=== PATIENT | female | born 1965 | race Caucasian/White ===

== ENCOUNTER → 2017-05-27 | Outpatient (CLI) | payer MEDICARE ==
[~2017-05-27] VITALS: Ht 160 cm; Wt 77.3 kg
[~2017-05-27] MED LIST: ALEVE220 M1 PO; CEPHALEXIN500 M1 PO; NORCO 325 MG-51 TA1 PO
[2017-05-27 09:39] VITALS: BP 121/56
[2017-05-27 09:57] LABS: HEMATOCRIT 48.9 % (37.0-47.0); HEMOGLOBIN 15.7 g/dL (12.5-16.0); MEAN CELL VOLUME 86 fl (78-100); MEAN CORPUSCULAR HEMOGLOBIN 28 pg (27-31); MEAN CORPUSCULAR HGB CONC 32 g/dL (33-37); MEAN PLATELET VOLUME 9.1 fl (7.4-10.4); RED BLOOD COUNT 5.68 M/mm3 (4.10-5.30); RED CELL DISTRIBUTION WIDTH 15.8 % (11.5-14.5); WHITE BLOOD COUNT 10.6 K/mm3 (4.8-10.8)
[2017-05-27 10:03] LABS: PLATELET COUNT 876 K/mm3 (130-400)
[2017-05-27 10:08] LABS: ALBUMIN 4.2 g/dL (3.5-5.0); CALCIUM 9.8 mg/dL (8.4-10.2); POTASSIUM 4.5 mmol/L (3.6-5.0); TOTAL PROTEIN 7.4 g/dL (6.3-8.2)
[2017-05-27 10:14] LABS: PROTHROMBIN TIME 11.7 SECONDS (9.0-12.0)
[2017-05-27 10:15] LABS: BASO # 0.2 (0.02-0.10); EOS # 0.3 (0.04-0.40); EOS % 2.4 % (1.0-5.0); LYMPH# 1.3 (1.50-4.00); MONO # 1.2 (0.20-0.80); NEU # 7.4 (1.40-6.50)
[2017-05-27 10:19] LABS: URINE APPEARANCE HAZY; URINE BILIRUBIN NEGATIVE (NEGATIVE); URINE BLOOD NEGATIVE (NEGATIVE); URINE COLOR YELLOW; URINE GLUCOSE NEGATIVE (NEGATIVE); URINE KETONE NEGATIVE (NEGATIVE); URINE LEUKOCYTE ESTERASE 2+ (NEGATIVE); URINE MUCUS PRESENT (NOT PRESENT); URINE NITRATE NEGATIVE (NEGATIVE); URINE PROTEIN(semi-quant) TRACE mg/dL (NEGATIVE); URINE UROBILINOGEN NORMAL (NORMAL); URINE WBC 16-30 /hpf (0-3)
== END ==
LOC: AMSURD 08:06
PROVIDERS: Orthopaedic Surgery Sports Medicine
DX: Z01.818 Encounter for other preprocedural examination (principal); Z01.812 Encounter for preprocedural laboratory examination; M17.11 Unilateral primary osteoarthritis, right knee; E66.3 Overweight; D64.9 Anemia, unspecified

== ENCOUNTER → 2017-05-28 | Outpatient (CLI) | payer MEDICARE ==
[2017-05-27 09:39] VITALS: BP 121/56
== END ==
LOC: MAMMO 09:17
DX: Z12.31 Encounter for screening mammogram for malignant neoplasm of breast (principal)
CPT/HCPCS: G0202

== ENCOUNTER 2017-08-05 09:30 | Outpatient (RCR) | payer MEDICARE ==
[2017-05-27 09:39] VITALS: BP 121/56
== END 2017-09-24 | disposition home or self-care (01) ==
LOC: PT
DX: Z47.1 Aftercare following joint replacement surgery (principal); Z96.651 Presence of right artificial knee joint
CPT/HCPCS: G8978-GP; G8979-GP

== ENCOUNTER 2017-12-21 13:36 | Emergency (ER) | payer MEDICARE ==
[~2017-12-21] VITALS: Wt 77.1 kg
[2017-12-21] MEDS ORDERED: KEFLEX250 M1 PO (14:14)
[2017-12-21] MEDS ORDERED: PREDNISONE20 M1 PO (14:14)
[2017-12-21 14:23] VITALS: BP 125/50
== END 2017-12-21 14:29 | disposition home or self-care (01) ==
LOC: ED 13:36
DX: L03.113 Cellulitis of right upper limb (principal)
CPT/HCPCS: J7512

== ENCOUNTER 2018-06-09 14:13 | Emergency (ER) | payer MEDICARE ==
[~2018-06-09] VITALS: Ht 160 cm; Wt 79.5 kg
[~2018-06-09 14:13] MED LIST changes: +KEFLEX250 M1 PO; +PREDNISONE20 M1 PO
[2018-06-09 15:29] LABS: HEMATOCRIT 45.9 % (37.0-47.0); HEMOGLOBIN 15.1 g/dL (12.5-16.0); MEAN CELL VOLUME 84 fl (78-100); MEAN CORPUSCULAR HEMOGLOBIN 28 pg (27-31); MEAN CORPUSCULAR HGB CONC 33 g/dL (33-37); MEAN PLATELET VOLUME 9.4 fl (7.4-10.4); RED BLOOD COUNT 5.47 M/mm3 (4.10-5.30); RED CELL DISTRIBUTION WIDTH 16.9 % (11.5-14.5); WHITE BLOOD COUNT 12.1 K/mm3 (4.8-10.8)
[2018-06-09 15:34] LABS: ALBUMIN 4.6 g/dL (3.5-5.0); CALCIUM 9.5 mg/dL (8.4-10.2); POTASSIUM 4.3 mmol/L (3.6-5.0); TOTAL BILIRUBIN 0.8 mg/dL (0.2-1.3); TOTAL PROTEIN 7.6 g/dL (6.3-8.2)
[2018-06-09 15:42] LABS: PARTIAL THROMBOPLASTIN TIME 25.9 SECONDS (21.0-32.0); PROTHROMBIN TIME 11.9 SECONDS (9.0-12.0)
[2018-06-09 15:49] LABS: PLATELET COUNT 788 K/mm3 (130-400)
[2018-06-09 15:50] LABS: D-DIMER 0.24 mg/L FEU (0.15-0.50)
[2018-06-09 16:03] LABS: URINE APPEARANCE HAZY; URINE BILIRUBIN NEGATIVE (NEGATIVE); URINE BLOOD NEGATIVE (NEGATIVE); URINE COLOR YELLOW; URINE GLUCOSE NEGATIVE (NEGATIVE); URINE KETONE NEGATIVE (NEGATIVE); URINE LEUKOCYTE ESTERASE 2+ (NEGATIVE); URINE NITRATE NEGATIVE (NEGATIVE); URINE PROTEIN(semi-quant) TRACE mg/dL (NEGATIVE); URINE UROBILINOGEN NORMAL (NORMAL)
[2018-06-09 16:04] LABS: LYMPHOCYTE 11 % (20-51); MONOCYTE 9 % (3-10); NEUTROPHILS 77 % (42-75); URINE MUCUS PRESENT (NOT PRESENT)
[2018-06-09] MEDS ORDERED: BACTRIM DS TAB1 EACH PO (16:57)
[2018-06-09 17:10] VITALS: BP 120/53
== END 2018-06-09 15:00 | disposition home or self-care (01) ==
LOC: ED 14:13
PROVIDERS: Physician Assistant
DX: N39.0 Urinary tract infection, site not specified (principal); R42 Dizziness and giddiness; R07.89 Other chest pain; F41.9 Anxiety disorder, unspecified; Z82.0 Family history of epilepsy and other diseases of the nervous system

== ENCOUNTER → 2018-06-25 | Outpatient (CLI) | payer MEDICARE ==
[2018-06-09 17:10] VITALS: BP 120/53
[~2018-06-25] MED LIST changes: +BACTRIM DS TAB1 EACH PO
[2018-06-25 14:41] LABS: ALBUMIN 4.4 g/dL (3.5-5.0); BASO # 0.1 (0.02-0.10); CALCIUM 9.2 mg/dL (8.4-10.2); EOS # 0.2 (0.04-0.40); EOS % 2.2 % (1.0-5.0); HEMATOCRIT 43.8 % (37.0-47.0); HEMOGLOBIN 14.1 g/dL (12.5-16.0); LYMPH# 1.4 (1.50-4.00); MEAN CELL VOLUME 85 fl (78-100); MEAN CORPUSCULAR HEMOGLOBIN 27 pg (27-31); MEAN CORPUSCULAR HGB CONC 32 g/dL (33-37); MEAN PLATELET VOLUME 9.5 fl (7.4-10.4); MONO # 0.8 (0.20-0.80); NEU # 5.7 (1.40-6.50); POTASSIUM 4.2 mmol/L (3.6-5.0); RED BLOOD COUNT 5.14 M/mm3 (4.10-5.30); RED CELL DISTRIBUTION WIDTH 17.1 % (11.5-14.5); TOTAL BILIRUBIN 0.6 mg/dL (0.2-1.3); WHITE BLOOD COUNT 8.3 K/mm3 (4.8-10.8)
[2018-06-25 15:56] LABS: PLATELET COUNT 767 K/mm3 (130-400)
[2018-06-25 20:48] LABS: URINE APPEARANCE CLEAR; URINE BILIRUBIN NEGATIVE (NEGATIVE); URINE BLOOD NEGATIVE (NEGATIVE); URINE COLOR YELLOW; URINE GLUCOSE NEGATIVE (NEGATIVE); URINE KETONE NEGATIVE (NEGATIVE); URINE NITRATE NEGATIVE (NEGATIVE); URINE PROTEIN(semi-quant) TRACE mg/dL (NEGATIVE); URINE UROBILINOGEN NORMAL (NORMAL)
[2018-06-25 20:49] LABS: URINE LEUKOCYTE ESTERASE 1+ (NEGATIVE)
== END ==
LOC: LAB 13:45
PROVIDERS: Family Medicine
DX: Z01.419 Encounter for gynecological examination (general) (routine) without abnormal findings (principal); I10 Essential (primary) hypertension; R53.83 Other fatigue; N39.0 Urinary tract infection, site not specified

== ENCOUNTER → 2018-06-28 | Outpatient (CLI) | payer MEDICARE ==
[2018-06-09 17:10] VITALS: BP 120/53
[2018-06-28 13:51] LABS: BASO # 0.1 (0.02-0.10); EOS # 0.2 (0.04-0.40); EOS % 2.5 % (1.0-5.0); HEMATOCRIT 43.1 % (37.0-47.0); HEMOGLOBIN 13.8 g/dL (12.5-16.0); LYMPH# 1.2 (1.50-4.00); MEAN CELL VOLUME 85 fl (78-100); MEAN CORPUSCULAR HEMOGLOBIN 27 pg (27-31); MEAN CORPUSCULAR HGB CONC 32 g/dL (33-37); NEU # 5.7 (1.40-6.50); RED BLOOD COUNT 5.05 M/mm3 (4.10-5.30); RED CELL DISTRIBUTION WIDTH 16.9 % (11.5-14.5); WHITE BLOOD COUNT 8.3 K/mm3 (4.8-10.8)
[2018-06-28 14:11] LABS: PLATELET COUNT 700 K/mm3 (130-400)
== END ==
LOC: LAB 13:36
PROVIDERS: Family Medicine
DX: D47.3 Essential (hemorrhagic) thrombocythemia (principal); D72.824 Basophilia

== ENCOUNTER → 2018-06-29 | Outpatient (CLI) | payer MEDICARE ==
[2018-06-09 17:10] VITALS: BP 120/53
== END ==
LOC: CARDREHAB 15:45
DX: R07.9 Chest pain, unspecified (principal)

== ENCOUNTER → 2018-07-02 | Outpatient (CLI) | payer MEDICARE ==
[2018-06-09 17:10] VITALS: BP 120/53
[2018-07-02 12:32] LABS: HEMATOCRIT 44.9 % (37.0-47.0); HEMOGLOBIN 14.7 g/dL (12.5-16.0); MEAN CELL VOLUME 85 fl (78-100); MEAN CORPUSCULAR HEMOGLOBIN 28 pg (27-31); MEAN CORPUSCULAR HGB CONC 33 g/dL (33-37); MEAN PLATELET VOLUME 9.2 fl (7.4-10.4); RED BLOOD COUNT 5.31 M/mm3 (4.10-5.30); RED CELL DISTRIBUTION WIDTH 17.1 % (11.5-14.5); WHITE BLOOD COUNT 9.7 K/mm3 (4.8-10.8)
[2018-07-02 14:25] LABS: PLATELET COUNT 750 K/mm3 (130-400)
[2018-07-02 14:26] LABS: LYMPHOCYTE 16 % (20-51); MONOCYTE 8 % (3-10); NEUTROPHILS 72 % (42-75)
[2018-07-02 14:27] LABS: MICROCYTOSIS 1+; OVALOCYTES 1+
== END ==
LOC: LAB 12:11
PROVIDERS: Family Medicine
DX: D47.3 Essential (hemorrhagic) thrombocythemia (principal)

== ENCOUNTER → 2018-07-06 | Outpatient (CLI) | payer MEDICARE ==
[2018-06-09 17:10] VITALS: BP 120/53
== END ==
LOC: MAMMO 08:56
DX: Z12.31 Encounter for screening mammogram for malignant neoplasm of breast (principal)

== ENCOUNTER → 2018-11-29 | Outpatient (CLI) | payer MEDICARE | LOC: LAB 10:56 | DX: N39.0 Urinary tract infection, site not specified (principal) ==

== ENCOUNTER → 2019-01-10 | Outpatient (CLI) | payer MEDICARE ==
[2019-01-10 13:35] LABS: BASO # 0.1 (0.02-0.10); EOS # 0.2 (0.04-0.40); EOS % 2.1 % (1.0-5.0); HEMATOCRIT 37.9 % (37.0-47.0); HEMOGLOBIN 12.1 g/dL (12.5-16.0); LYMPH# 1.4 (1.50-4.00); MEAN CELL VOLUME 90 fl (78-100); MEAN CORPUSCULAR HEMOGLOBIN 29 pg (27-31); MEAN CORPUSCULAR HGB CONC 32 g/dL (33-37); MEAN PLATELET VOLUME 9.7 fl (7.4-10.4); MONO # 0.7 (0.20-0.80); NEU # 4.5 (1.40-6.50); RED BLOOD COUNT 4.22 M/mm3 (4.10-5.30); RED CELL DISTRIBUTION WIDTH 16.7 % (11.5-14.5)
[2019-01-10 13:41] LABS: PLATELET COUNT 513 K/mm3 (130-400)
== END ==
LOC: LAB 13:11
DX: D47.3 Essential (hemorrhagic) thrombocythemia (principal)

== ENCOUNTER → 2019-07-21 | Outpatient (CLI) | payer MEDICARE ==
[2019-07-21 16:32] LABS: BASO # 0.1 (0.02-0.10); EOS # 0.1 (0.04-0.40); EOS % 2.1 % (1.0-5.0); HEMATOCRIT 38.1 % (37.0-47.0); HEMOGLOBIN 12.1 g/dL (12.5-16.0); LYMPH# 1.2 (1.50-4.00); MEAN CELL VOLUME 87 fl (78-100); MEAN CORPUSCULAR HEMOGLOBIN 28 pg (27-31); MEAN CORPUSCULAR HGB CONC 32 g/dL (33-37); MEAN PLATELET VOLUME 9.8 fl (7.4-10.4); MONO # 0.6 (0.20-0.80); PLATELET COUNT 427 K/mm3 (130-400); RED BLOOD COUNT 4.37 M/mm3 (4.10-5.30); WHITE BLOOD COUNT 6.2 K/mm3 (4.8-10.8)
[2019-07-21 16:50] LABS: ALBUMIN 4.2 g/dL (3.5-5.0); POTASSIUM 4.3 mmol/L (3.5-5.1)
[2019-07-21 16:51] LABS: CALCIUM 9.1 mg/dL (8.3-10.5)
[2019-07-21 16:54] LABS: TOTAL BILIRUBIN 0.8 mg/dL (0.2-1.2)
== END ==
LOC: LAB 16:01
PROVIDERS: Nurse Practitioner
DX: R03.0 Elevated blood-pressure reading, without diagnosis of hypertension (principal); Z85.6 Personal history of leukemia

== ENCOUNTER → 2019-07-26 | Outpatient (CLI) | payer MEDICARE | LOC: MAMMO 10:21 | DX: Z13.820 Encounter for screening for osteoporosis (principal); M85.88 Other specified disorders of bone density and structure, other site ==

== ENCOUNTER → 2019-07-26 | Outpatient (CLI) | payer MEDICARE | LOC: MAMMO 10:19 | DX: Z12.31 Encounter for screening mammogram for malignant neoplasm of breast (principal) ==

== ENCOUNTER → 2020-08-13 | Outpatient (CLI) | payer MEDICARE ==
[2020-08-13 14:02] LABS: BASO # 0.1 (0.02-0.10); EOS # 0.1 (0.04-0.40); EOS % 1.6 % (1.0-5.0); HEMATOCRIT 36.4 % (37.0-47.0); HEMOGLOBIN 11.4 g/dL (12.5-16.0); LYMPH# 1.3 (1.50-4.00); MEAN CELL VOLUME 87 fl (78-100); MEAN CORPUSCULAR HEMOGLOBIN 27 pg (27-31); MEAN CORPUSCULAR HGB CONC 31 g/dL (33-37); MEAN PLATELET VOLUME 9.9 fl (7.4-10.4); MONO # 0.6 (0.20-0.80); NEU # 3.2 (1.40-6.50); PLATELET COUNT 297 K/mm3 (130-400); RED BLOOD COUNT 4.21 M/mm3 (4.10-5.30); RED CELL DISTRIBUTION WIDTH 17.3 % (11.5-14.5); WHITE BLOOD COUNT 5.5 K/mm3 (4.8-10.8)
[2020-08-13 14:12] LABS: ALBUMIN 4.2 g/dL (3.5-5.0); POTASSIUM 4.5 mmol/L (3.5-5.1)
[2020-08-13 14:13] LABS: CALCIUM 8.8 mg/dL (8.3-10.5)
[2020-08-13 14:14] LABS: TOTAL PROTEIN 6.6 g/dL (6.4-8.3)
[2020-08-13 14:16] LABS: TOTAL BILIRUBIN 0.8 mg/dL (0.2-1.2)
== END ==
LOC: LAB 13:45
PROVIDERS: Family Medicine
DX: Z00.00 Encounter for general adult medical examination without abnormal findings (principal); E78.5 Hyperlipidemia, unspecified

== ENCOUNTER → 2020-08-28 | Outpatient (CLI) | payer MEDICARE | LOC: MAMMO 09:15 | DX: Z12.31 Encounter for screening mammogram for malignant neoplasm of breast (principal) ==

== ENCOUNTER → 2020-09-06 | Outpatient (CLI) | payer MEDICARE | LOC: LAB 08:34 | DX: U07.1 COVID-19 (principal) ==

== ENCOUNTER 2021-02-24 12:59 | Emergency (ER) | payer MEDICARE ==
[~2021-02-24] VITALS: Ht 160 cm; Wt 77.3 kg
[2021-02-24] MEDS ORDERED: AGRYLIN PO (13:09)
[2021-02-24] MEDS ORDERED: ASPIRIN E.C. 8181 MG PO (13:09)
[2021-02-24] MEDS ORDERED: NATURAL IRON65 MG PO (13:10)
[2021-02-24] MEDS ORDERED: ESCITALOPRAM5 MG PO (13:10)
[2021-02-24] MEDS ORDERED: VITAMIN D310 MCG (13:10)
[2021-02-24] MEDS ORDERED: CEPHALEXIN500 M1 PO (14:08)
[2021-02-24 14:16] VITALS: BP 139/77
== END 2021-02-24 14:26 | disposition home or self-care (01) ==
LOC: ED 12:59
DX: S81.811A Laceration without foreign body, right lower leg, initial encounter (principal); F41.9 Anxiety disorder, unspecified; Z96.651 Presence of right artificial knee joint; Z23 Encounter for immunization; Z79.899 Other long term (current) drug therapy; W22.8XXA Striking against or struck by other objects, initial encounter; Y93.01 Activity, walking, marching and hiking; Y92.009 Unspecified place in unspecified non-institutional (private) residence as the place of occurrence of the external cause
CPT/HCPCS: 90715; J0696

== ENCOUNTER → 2021-09-06 | Outpatient (CLI) | payer MEDICARE ==
[~2021-09-06] MED LIST changes: +AGRYLIN PO; +ASPIRIN E.C. 8181 MG PO; +ESCITALOPRAM5 MG PO; +NATURAL IRON65 MG PO; +VITAMIN D310 MCG
== END ==
LOC: LAB 11:09
DX: E55.9 Vitamin D deficiency, unspecified (principal)

== ENCOUNTER → 2021-09-10 | Outpatient (CLI) | payer MEDICARE ==
[2021-09-10 11:00] LABS: HEMATOCRIT 35.7 % (37.0-47.0); HEMOGLOBIN 11.4 g/dL (12.5-16.0); MEAN CELL VOLUME 88 fl (78-100); MEAN CORPUSCULAR HEMOGLOBIN 28 pg (27-31); MEAN CORPUSCULAR HGB CONC 32 g/dL (33-37); PLATELET COUNT 330 K/mm3 (130-400); RED BLOOD COUNT 4.04 M/mm3 (4.10-5.30); RED CELL DISTRIBUTION WIDTH 17.1 % (11.5-14.5); WHITE BLOOD COUNT 5.5 K/mm3 (4.8-10.8)
[2021-09-10 11:36] LABS: BASO # 0.13 K/mm3 (0.02-0.10); EOS # 0.11 K/mm3 (0.04-0.40); LYMPH# 0.96 K/mm3 (1.50-4.00); MONO # 0.63 K/mm3 (0.20-0.80); NEU # 3.32 K/mm3 (1.40-6.50)
[2021-09-11 00:54] LABS: T3 FREE 2.4 pg/mL (1.7-3.7)
== END ==
LOC: LAB 10:23
PROVIDERS: Family Medicine
DX: E55.9 Vitamin D deficiency, unspecified (principal); R53.83 Other fatigue; D64.9 Anemia, unspecified

== ENCOUNTER 2021-11-08 12:29 | Emergency (ER) | payer MEDICARE ==
[~2021-11-08] VITALS: Ht 160 cm; Wt 77.3 kg
[2021-11-08] MEDS ORDERED: MEDROL DOSEPAK4 MG PO (12:57)
[2021-11-08 13:04] LABS: BASO # 0.14 K/mm3 (0.02-0.10); EOS # 0.12 K/mm3 (0.04-0.40); HEMATOCRIT 36.2 % (37.0-47.0); HEMOGLOBIN 11.5 g/dL (12.5-16.0); LYMPH# 1.26 K/mm3 (1.50-4.00); MEAN CELL VOLUME 90 fl (78-100); MEAN CORPUSCULAR HEMOGLOBIN 29 pg (27-31); MEAN CORPUSCULAR HGB CONC 32 g/dL (33-37); MEAN PLATELET VOLUME 10.5 fl (7.4-10.4); NEU # 3.32 K/mm3 (1.40-6.50); PLATELET COUNT 350 K/mm3 (130-400); RED BLOOD COUNT 4.02 M/mm3 (4.10-5.30); WHITE BLOOD COUNT 5.9 K/mm3 (4.8-10.8)
[2021-11-08 13:28] LABS: ALBUMIN 4.1 g/dL (3.5-5.0); POTASSIUM 4.2 mmol/L (3.5-5.1)
[2021-11-08 13:30] LABS: TOTAL PROTEIN 6.7 g/dL (6.4-8.3)
[2021-11-08 13:32] LABS: TOTAL BILIRUBIN 0.9 mg/dL (0.2-1.2)
[2021-11-08 14:16] LABS: URINE APPEARANCE CLEAR; URINE BILIRUBIN NEGATIVE (NEGATIVE); URINE BLOOD NEGATIVE (NEGATIVE); URINE COLOR YELLOW; URINE GLUCOSE NEGATIVE (NEGATIVE); URINE KETONE NEGATIVE (NEGATIVE); URINE LEUKOCYTE ESTERASE TRACE (NEGATIVE); URINE MUCUS PRESENT (NOT PRESENT); URINE NITRATE NEGATIVE (NEGATIVE); URINE PROTEIN(semi-quant) 1+ (NEGATIVE); URINE UROBILINOGEN NORMAL (NORMAL)
[2021-11-08] MEDS ORDERED: METOPROLOL SUCC25 M1 PO (16:44)
[2021-11-08] MEDS ORDERED: ELIQUIS2.5 MG PO (16:45)
[2021-11-08 17:11] VITALS: BP 128/88
== END 2021-11-08 17:05 | disposition home or self-care (01) ==
LOC: ED 12:29
PROVIDERS: Nurse Practitioner
DX: I48.91 Unspecified atrial fibrillation (principal)

== ENCOUNTER → 2021-12-27 | Outpatient (CLI) | payer MEDICARE ==
[~2021-12-27] MED LIST changes: +ELIQUIS2.5 MG PO; +MEDROL DOSEPAK4 MG PO; +METOPROLOL SUCC25 M1 PO
[2021-12-27 08:54] LABS: HEMATOCRIT 33.4 % (37.0-47.0); HEMOGLOBIN 10.8 g/dL (12.5-16.0); MEAN PLATELET VOLUME 11.1 fl (7.4-10.4); RED BLOOD COUNT 3.72 M/mm3 (4.10-5.30); RED CELL DISTRIBUTION WIDTH 16.9 % (11.5-14.5)
[2021-12-27 09:12] LABS: POTASSIUM 3.9 mmol/L (3.5-5.1)
[2021-12-27 09:13] LABS: CALCIUM 9.2 mg/dL (8.3-10.5)
== END ==
LOC: LAB 08:01
PROVIDERS: Internal Medicine Interventional Cardiology
DX: R07.89 Other chest pain (principal)

== ENCOUNTER → 2022-01-28 | Outpatient (CLI) | payer MEDICARE | LOC: LAB 13:04 | DX: R05.1 Acute cough (principal); Z20.822 Contact with and (suspected) exposure to COVID-19 ==

== ENCOUNTER → 2022-06-06 | Outpatient (CLI) | payer MEDICARE | LOC: RAD 16:46 | DX: M25.472 Effusion, left ankle (principal); M25.572 Pain in left ankle and joints of left foot; Z87.828 Personal history of other (healed) physical injury and trauma ==

== ENCOUNTER 2023-09-27 17:35 | Emergency (ER) | payer MEDICARE, MEDICAID ==
[~2023-09-27] VITALS: Ht 160 cm; Wt 80.0 kg
[2023-09-27] MEDS ORDERED: AMOXICILLIN AND1 TA2 PO (18:06)
[2023-09-27] MEDS ORDERED: Amoxicillin/Clavulanate K+ 875/125 MG TAB PO ONE (18:15)
[2023-09-27 19:14] VITALS: BP 129/71
== END 2023-09-27 19:17 | disposition home or self-care (01) ==
LOC: ED 17:35
DX: S81.051A Open bite, right knee, initial encounter (principal); Z23 Encounter for immunization; W54.0XXA Bitten by dog, initial encounter
CPT/HCPCS: 90715

== ENCOUNTER → 2024-05-31 | Outpatient (CLI) | payer MEDICARE, MEDICAID ==
[~2024-05-31] MED LIST changes: +AMOXICILLIN AND1 TA2 PO
[2024-05-31 12:56] LABS: HEMATOCRIT 32.6 % (37.0-47.0); HEMOGLOBIN 10.4 g/dL (12.5-16.0); MEAN CELL VOLUME 90 fl (78-100); MEAN CORPUSCULAR HEMOGLOBIN 29 pg (27-31); MEAN CORPUSCULAR HGB CONC 32 g/dL (33-37); MEAN PLATELET VOLUME 10.1 fl (7.4-10.4); PLATELET COUNT 203 K/mm3 (130-400); RED BLOOD COUNT 3.61 M/mm3 (4.10-5.30); RED CELL DISTRIBUTION WIDTH 16.9 % (11.5-14.5); WHITE BLOOD COUNT 4.6 K/mm3 (4.8-10.8)
[2024-05-31 13:01] LABS: ALBUMIN 4.3 g/dL (3.5-5.0)
[2024-05-31 13:02] LABS: CALCIUM 9.1 mg/dL (8.3-10.5)
[2024-05-31 13:04] LABS: TOTAL PROTEIN 6.9 g/dL (6.4-8.3)
[2024-05-31 13:06] LABS: TOTAL BILIRUBIN 0.9 mg/dL (0.2-1.2)
[2024-05-31 13:16] LABS: BAND 4 % (0-10); MONOCYTE 10 % (3-10); NEUTROPHILS 52 % (42-75)
[2024-05-31 13:18] LABS: METAMYELOCYTE 4 % (0-0)
[2024-05-31 13:19] LABS: LYMPHOCYTE 26 % (20-51); NUCLEATED RED BLOOD CELL 1 (0-6)
== END ==
LOC: LAB 12:42
PROVIDERS: Family Medicine
DX: E78.5 Hyperlipidemia, unspecified (principal); E03.9 Hypothyroidism, unspecified; I10 Essential (primary) hypertension; D64.9 Anemia, unspecified

== ENCOUNTER → 2024-07-07 | Outpatient (CLI) | payer MEDICARE | LOC: MAMMO 10:51 | DX: Z12.31 Encounter for screening mammogram for malignant neoplasm of breast (principal); M81.0 Age-related osteoporosis without current pathological fracture; R13.10 Dysphagia, unspecified ==

== ENCOUNTER → 2024-07-15 | Outpatient (CLI) | payer MEDICARE ==
[~2024-07-15] VITALS: Ht 160 cm; Wt 80.0 kg
[~2024-07-15] MED LIST changes: +ATORVASTATIN CA10 MG PO; +CYMBALTA30 M1 PO; +FEOSOL325 MG PO; +LIDOCAINE 5%35.44 GM TP; +Lidocaine 2% Jelly 5 GM TUBE TOP ONE; +MUPIROCIN2% TP
[2024-07-15 13:25] VITALS: BP 109/70
== END ==
LOC: WOUND 12:58 → LAB 12:58
DX: S81.801D Unspecified open wound, right lower leg, subsequent encounter (principal)

== ENCOUNTER → 2024-07-22 | Outpatient (CLI) | payer MEDICARE ==
[~2024-07-22] VITALS: Ht 160 cm; Wt 80.0 kg
[2024-07-22 11:26] VITALS: BP 129/52
== END ==
LOC: WOUND 10:44
DX: S81.811A Laceration without foreign body, right lower leg, initial encounter (principal)
CPT/HCPCS: 18895; 19899; A6021

== ENCOUNTER → 2024-07-26 | Outpatient (CLI) | payer MEDICARE ==
[~2024-07-26] VITALS: Ht 160 cm; Wt 80.0 kg
[2024-07-26 09:31] VITALS: BP 119/77
--- NOTE | 2024-07-26 09:32 | NUR ---
SEE PROVIDER NOTE FROM Boo GODINEZ APRN
== END ==
LOC: WOUND 09:05
DX: S81.811A Laceration without foreign body, right lower leg, initial encounter (principal)
CPT/HCPCS: 18895; 19899; A6021

== ENCOUNTER → 2024-07-29 | Outpatient (CLI) | payer MEDICARE ==
[~2024-07-29] VITALS: Ht 160 cm; Wt 80.0 kg
[2024-07-29 10:59] VITALS: BP 118/57
--- NOTE | 2024-07-29 11:05 | NUR ---
SEE PROVIDER NOTE FROM Boo GODINEZ APRN
== END ==
LOC: WOUND 10:36
DX: S81.811A Laceration without foreign body, right lower leg, initial encounter (principal)

== ENCOUNTER → 2024-08-05 | Outpatient (CLI) | payer MEDICARE ==
[~2024-08-05] VITALS: Ht 160 cm; Wt 80.0 kg
[~2024-08-05] MED LIST changes: -Lidocaine 2% Jelly 5 GM TUBE TOP ONE; +Lidocaine 2% Jelly 5 GM TUBE TOP PRN
[2024-08-05 10:27] VITALS: BP 138/80
--- NOTE | 2024-08-05 10:29 | NUR ---
WOUND SCABBED OVER. LIDOCAINE PLACED TO WOUND BED. MEASUREMENTS AND PHOTOGRAPHS TAKEN, SEE PROVIDER NOTE. MIMI GODINEZ APRN DEBRIDED WOUND WITH 5MM CURETTE, CLEANSED WITH VASHE, COLLAGEN PLACED AND COVERED WITH MEPILE BORDER FOAM. DRESSING CHANGE INSTRUCTIONS PROVIDED TO CHANGE AGAIN ON Thursday08/08/24 AND APPT SCHEDULED FOR 08/12/24.
== END ==
LOC: WOUND 10:08
DX: S81.811A Laceration without foreign body, right lower leg, initial encounter (principal)

== ENCOUNTER → 2024-08-12 | Outpatient (CLI) | payer MEDICARE ==
[~2024-08-12] VITALS: Ht 160 cm; Wt 80.0 kg
[~2024-08-12] MED LIST changes: +Lidocaine 2% Jelly 5 GM TUBE TOP ONE; -Lidocaine 2% Jelly 5 GM TUBE TOP PRN
[2024-08-12 10:24] VITALS: BP 110/74
--- NOTE | 2024-08-12 10:25 | NUR ---
PT HERE FOR WOUND CARE TO [facility]. NO DRAINAGE ON OLD DRESSING TODAY. WOUND HAS A DRIED SCAB COVERING WOUND. 2% lIDOCAIN APPLIED PRIOR TO DEBRIDEMENT BY Boo GODINEZ APRN. CLEANED WITH VASHE. LEFT OPEN TO AIR. MAY SHOWER NOW. INSTRUCTED TO CALL IF IT OPENS BACK UP OR STARTS DRAINING.
== END ==
LOC: WOUND 09:56
DX: S81.811A Laceration without foreign body, right lower leg, initial encounter (principal)

== ENCOUNTER → 2024-10-13 | Outpatient (CLI) | payer MEDICARE ==
[~2024-10-13] MED LIST changes: -Lidocaine 2% Jelly 5 GM TUBE TOP ONE
== END ==
LOC: LAB 09:06
DX: E78.5 Hyperlipidemia, unspecified (principal)